=== PATIENT | female | born 1955 | race African-American/Black ===

== ENCOUNTER 2017-10-08 20:46 | Inpatient (IN) ==
[2017-10-08] MEDS ORDERED: ONDANSETRON 4 MG/2 ML VIAL ONE (21:27)
[2017-10-08] MEDS ORDERED: ONDANSETRON 4 MG/2 ML VIAL IV STA (21:28)
[2017-10-08] MEDS ORDERED: MORPHINE 4 MG/1 ML VIAL IV STA ×2 (21:48→22:34)
[2017-10-08] MEDS ORDERED: LACTATED RINGERS 1,000 ML IV ONE (21:48)
[2017-10-08] MEDS ORDERED: ALUM/MAG/SIMETH/LIDO VISC 1:1 30 ML BOTTLE PO STA (21:49)
[2017-10-08 21:58] LABS: Basophils % 0.2 % (0.0-0.8); Eosinophils # 0.1 10*3/uL (0.0-0.87); Eosinophils % 0.5 % (0.00-10.9); Hemoglobin 15.3 GM/DL (12.0-16.0); Immature Granulocytes % 0.5 %; Immature Granulocytes Absolute 0.08 #; Lymphocytes % 11.8 % (21.3-54.2); Mean Corpuscular HGB Conc 31.2 GM/DL (32-36); Mean Corpuscular Hemoglobin 29 PG (27-34); Mean Corpuscular Volume 93.5 FL (87-102); Mean Platelet Volume 10.9 FL (9.6-12.0); Monocytes # 1.7 10*3/uL (0.11-0.8); Monocytes % 9.8 % (1.7-12.7); Neutrophils # 13.2 10*3/uL (1.4-7.4); Neutrophils % 77.2 % (38.7-73.9); Platelet Count 248 T/CUMM (130-400); Red Blood Count 5.24 MC/CUMM (3.8-5.5); Red Cell Distribution Width 13.9 % (9.3-17.3); White Blood Count 17.1 T/CUMM (4-12)
[2017-10-08 22:08] LABS: PT Patient Result 10.8 SECS; Partial Thromboplastin Time 25.7 SECS (0-40)
[2017-10-08 22:26] LABS: Lactic Acid 2.8 MMOL/L (0.4-2.0)
[2017-10-08] MEDS ORDERED: MORPHINE 10 MG/1 ML VIAL ONE (22:34)
[2017-10-08 22:49] LABS: Albumin 3.8 G/DL (3.4-5.0); Bilirubin,Total 0.8 MG/DL (0.2-1.0); Calcium 10.6 MG/DL (8.5-10.1); Osmolality,Calculated 286.3 MOS/KG (273-304); Potassium 3.1 MMOL/L (3.5-5.1); Total Protein 8.2 G/DL (6.4-8.3)
[2017-10-09] MEDS ORDERED: MORPHINE 4 MG/1 ML VIAL IV PRN (01:34)
[2017-10-09 02:25] LABS: Lactic Acid 2.1 MMOL/L (0.4-2.0)
[2017-10-09] MEDS: SODIUM CHLORIDE 0.9% 1,000 ML IV SCH ×3 (02:45→17:27)
[2017-10-09] MEDS: ONDANSETRON 4 MG/2 ML VIAL IV PRN (05:05)
[2017-10-09 06:18] LABS: Basophils % 0.3 % (0.0-0.8); Hematocrit 44.5 VOL% (35.7-47.0); Hemoglobin 14.5 GM/DL (12.0-16.0); Immature Granulocytes % 0.4 %; Immature Granulocytes Absolute 0.05 #; Lymphocytes # 0.6 10*3/uL (1.4-4.0); Lymphocytes % 4.9 % (21.3-54.2); Mean Corpuscular HGB Conc 32.6 GM/DL (32-36); Mean Corpuscular Hemoglobin 29 PG (27-34); Mean Corpuscular Volume 89.9 FL (87-102); Mean Platelet Volume 11.4 FL (9.6-12.0); Monocytes # 0.5 10*3/uL (0.11-0.8); Monocytes % 3.9 % (1.7-12.7); Neutrophils # 11.6 10*3/uL (1.4-7.4); Neutrophils % 90.5 % (38.7-73.9); Platelet Count 223 T/CUMM (130-400); Red Blood Count 4.95 MC/CUMM (3.8-5.5); White Blood Count 12.8 T/CUMM (4-12)
[2017-10-09 06:53] LABS: Albumin 3.6 G/DL (3.4-5.0); Bilirubin,Total 1.3 MG/DL (0.2-1.0); Calcium 10.1 MG/DL (8.5-10.1); Osmolality,Calculated 279.5 MOS/KG (273-304); Potassium 4.3 MMOL/L (3.5-5.1); Total Protein 7.5 G/DL (6.4-8.3)
[2017-10-09 06:56] LABS: Band Neutrophils 1 % (0-10); Hypochromasia 1+; Lymphocytes 4 % (20-55); Microcytosis 1+; Platelet Estimate Normal; Segmented Neutrophils 94 % (50-85); Total Cells Counted 100
[2017-10-09] MEDS ORDERED: DEXTROSE 50% 25 GM/50 ML VIAL IV PRN (07:39)
[2017-10-09] MEDS ORDERED: GLUCAGON 1 MG VIAL IM PRN (07:39)
[2017-10-09] MEDS ORDERED: MEROPENEM 1,000 MG in SYRINGE 1 EACH IV SCH (09:00)
[2017-10-09] MEDS ORDERED: PANTOPRAZOLE 40 MG TABLET PO SCH (09:00)
[2017-10-09] MEDS ORDERED: HYDROmorphone 2 MG/1 ML VIAL IV PRN (09:36)
[2017-10-09] MEDS: PANTOPRAZOLE 40 MG VIAL IV SCH (09:42)
[2017-10-09] MEDS: metroNIDAZOLE INJ 500 MG in PREMIX 1 EACH IV SCH ×3 (09:42→21:19)
[2017-10-09 10:13] LABS: Hepatitis A Ab IgM Quant 0.26 Index; Hepatitis A Ab IgM Result Negative (Negative); Hepatitis B Core IgM Quant 0.12 Index; Hepatitis B Core IgM Result Negative (Negative); Hepatitis B Surface Ag Quant < 0.10 Index; Hepatitis B Surface Ag Result Negative (Negative); Hepatitis C Virus Ab Quant 0.03 Index
[2017-10-09 10:14] LABS: Hepatitis C Virus Ab Result Negative (Negative)
[2017-10-09] MEDS: ENOXAPARIN 40 MG/0.4 ML SYRINGE SUBCUT SCH (10:36)
[2017-10-09] MEDS: LEVOFLOXACIN INJ 750 MG in PREMIX 1 EACH IV SCH (10:54)
[2017-10-09] MEDS: INSULIN REGULAR 100 UNIT/ML SUBCUT SCH ×3 (14:15→21:57)
[2017-10-09] MEDS ORDERED: PROMETHAZINE INJ 12.5 MG in SODIUM CHLORIDE 0.9% 50 ML IV PRN (14:52)
[2017-10-09] MEDS: MEPERIDINE 50 MG/1 ML VIAL IV PRN ×2 (15:43→21:56)
[2017-10-09] MEDS: LACTATED RINGERS 1,000 ML IV SCH ×2 (17:26→21:57)
[2017-10-10] MEDS: MEPERIDINE 50 MG/1 ML VIAL IV PRN ×3 (03:19→18:40)
[2017-10-10] MEDS: metroNIDAZOLE INJ 500 MG in PREMIX 1 EACH IV SCH ×4 (03:20→20:25)
[2017-10-10 05:41] LABS: Basophils % 0.2 % (0.0-0.8); Eosinophils % 0.1 % (0.00-10.9); Hematocrit 43.6 VOL% (35.7-47.0); Hemoglobin 13.6 GM/DL (12.0-16.0); Immature Granulocytes % 0.4 %; Immature Granulocytes Absolute 0.08 #; Lymphocytes % 5.5 % (21.3-54.2); Mean Corpuscular HGB Conc 31.2 GM/DL (32-36); Mean Corpuscular Hemoglobin 29 PG (27-34); Mean Platelet Volume 11.2 FL (9.6-12.0); Neutrophils # 15.2 10*3/uL (1.4-7.4); Neutrophils % 82.8 % (38.7-73.9); Platelet Count 211 T/CUMM (130-400); Red Blood Count 4.74 MC/CUMM (3.8-5.5); Red Cell Distribution Width 14.1 % (9.3-17.3); White Blood Count 18.4 T/CUMM (4-12)
[2017-10-10 06:13] LABS: Albumin 2.9 G/DL (3.4-5.0); Bilirubin,Total 1.6 MG/DL (0.2-1.0); Calcium 9.3 MG/DL (8.5-10.1); Osmolality,Calculated 271.7 MOS/KG (273-304); Total Protein 6.4 G/DL (6.4-8.3)
[2017-10-10] MEDS: LACTATED RINGERS 1,000 ML IV SCH ×6 (08:04→23:45)
[2017-10-10] MEDS: INSULIN REGULAR 100 UNIT/ML SUBCUT SCH ×4 (08:12→22:57)
[2017-10-10 09:09] LABS: Free T4 (Free Thyroxine) 0.97 NG/DL (0.76-1.46); Thyroid Stimulating Hormone 0.463 uIU/ml (0.358-3.74)
[2017-10-10] MEDS: PANTOPRAZOLE 40 MG VIAL IV SCH (09:28)
[2017-10-10] MEDS: ENOXAPARIN 40 MG/0.4 ML SYRINGE SUBCUT SCH (09:31)
[2017-10-10] MEDS: LEVOFLOXACIN INJ 750 MG in PREMIX 1 EACH IV SCH (11:35)
[2017-10-10] MEDS: LEVOTHYROXINE 112 MCG TABLET PO SCH (13:19)
[2017-10-10] MEDS: FAMOTIDINE 20 MG TABLET PO SCH (13:25)
[2017-10-11] MEDS: MEPERIDINE 50 MG/1 ML VIAL IV PRN ×3 (01:57→20:38)
[2017-10-11] MEDS: metroNIDAZOLE INJ 500 MG in PREMIX 1 EACH IV SCH ×4 (01:58→20:36)
[2017-10-11] MEDS: LACTATED RINGERS 1,000 ML IV SCH ×3 (05:37→16:38)
[2017-10-11] MEDS: LEVOTHYROXINE 112 MCG TABLET PO SCH (07:02)
[2017-10-11 07:07] LABS: Basophils # 0.1 10*3/uL (0.0-0.2); Basophils % 0.3 % (0.0-0.8); Eosinophils # 0.1 10*3/uL (0.0-0.87); Eosinophils % 0.4 % (0.00-10.9); Hematocrit 41.9 VOL% (35.7-47.0); Hemoglobin 13.2 GM/DL (12.0-16.0); Immature Granulocytes % 0.6 %; Immature Granulocytes Absolute 0.09 #; Lymphocytes # 1.4 10*3/uL (1.4-4.0); Lymphocytes % 8.7 % (21.3-54.2); Mean Corpuscular HGB Conc 31.5 GM/DL (32-36); Mean Corpuscular Hemoglobin 29 PG (27-34); Mean Corpuscular Volume 91.9 FL (87-102); Mean Platelet Volume 11.5 FL (9.6-12.0); Monocytes # 2.2 10*3/uL (0.11-0.8); Monocytes % 13.9 % (1.7-12.7); Neutrophils # 12.2 10*3/uL (1.4-7.4); Neutrophils % 76.1 % (38.7-73.9); Platelet Count 154 T/CUMM (130-400); Red Blood Count 4.56 MC/CUMM (3.8-5.5); Red Cell Distribution Width 14.1 % (9.3-17.3)
[2017-10-11 07:34] LABS: Albumin 2.4 G/DL (3.4-5.0); Bilirubin,Total 2.2 MG/DL (0.2-1.0); Calcium 9.2 MG/DL (8.5-10.1); Osmolality,Calculated 269.8 MOS/KG (273-304); Potassium 3.7 MMOL/L (3.5-5.1); Total Protein 5.9 G/DL (6.4-8.3)
[2017-10-11] MEDS: INSULIN REGULAR 100 UNIT/ML SUBCUT SCH ×4 (08:54→21:27)
[2017-10-11] MEDS: PANTOPRAZOLE 40 MG VIAL IV SCH (08:56)
[2017-10-11] MEDS: FAMOTIDINE 20 MG TABLET PO SCH (08:56)
[2017-10-11] MEDS: ENOXAPARIN 40 MG/0.4 ML SYRINGE SUBCUT SCH (08:57)
[2017-10-11] MEDS: LEVOFLOXACIN INJ 750 MG in PREMIX 1 EACH IV SCH (10:41)
[2017-10-11] MEDS ORDERED: MAGNESIUM SULF RIDER 2 GM in PREMIX 1 EACH IV PRN (12:15)
[2017-10-11] MEDS ORDERED: MAGNESIUM SULF RIDER 4 GM in PREMIX 1 EACH IV PRN (12:15)
[2017-10-11] MEDS: CHOLECALCIFEROL 5,000 UNIT TABLET PO SCH (13:12)
[2017-10-11] MEDS: ONDANSETRON 4 MG/2 ML VIAL IV PRN (20:37)
[2017-10-12] MEDS: metroNIDAZOLE INJ 500 MG in PREMIX 1 EACH IV SCH ×4 (01:37→19:36)
[2017-10-12] MEDS: LACTATED RINGERS 1,000 ML IV SCH ×5 (05:17→20:00)
[2017-10-12 06:11] LABS: Basophils # 0.1 10*3/uL (0.0-0.2); Basophils % 0.4 % (0.0-0.8); Eosinophils # 0.2 10*3/uL (0.0-0.87); Eosinophils % 1.9 % (0.00-10.9); Hematocrit 37.4 VOL% (35.7-47.0); Hemoglobin 12.3 GM/DL (12.0-16.0); Immature Granulocytes % 0.6 %; Immature Granulocytes Absolute 0.08 #; Lymphocytes # 1.3 10*3/uL (1.4-4.0); Lymphocytes % 10.5 % (21.3-54.2); Mean Corpuscular HGB Conc 32.9 GM/DL (32-36); Mean Corpuscular Hemoglobin 30 PG (27-34); Mean Corpuscular Volume 89.9 FL (87-102); Mean Platelet Volume 11.1 FL (9.6-12.0); Monocytes # 1.6 10*3/uL (0.11-0.8); Monocytes % 12.7 % (1.7-12.7); Neutrophils # 9.3 10*3/uL (1.4-7.4); Neutrophils % 73.9 % (38.7-73.9); Platelet Count 189 T/CUMM (130-400); Red Blood Count 4.16 MC/CUMM (3.8-5.5); White Blood Count 12.6 T/CUMM (4-12)
[2017-10-12] MEDS: LEVOTHYROXINE 112 MCG TABLET PO SCH (06:21)
[2017-10-12 06:37] LABS: Calcium 8.7 MG/DL (8.5-10.1); Osmolality,Calculated 271.7 MOS/KG (273-304); Potassium 3.6 MMOL/L (3.5-5.1)
[2017-10-12 06:43] LABS: Albumin 2.3 G/DL (3.4-5.0); Bilirubin,Direct 0.31 MG/DL (0.0-0.20); Bilirubin,Indirect 1.4 MG/DL (0.0-1.0); Bilirubin,Total 1.7 MG/DL (0.2-1.0); Total Protein 5.9 G/DL (6.4-8.3)
[2017-10-12] MEDS: ENOXAPARIN 40 MG/0.4 ML SYRINGE SUBCUT SCH (09:54)
[2017-10-12] MEDS: FAMOTIDINE 20 MG TABLET PO SCH (09:55)
[2017-10-12] MEDS: PANTOPRAZOLE 40 MG VIAL IV SCH (09:55)
[2017-10-12] MEDS: INSULIN REGULAR 100 UNIT/ML SUBCUT SCH ×3 (10:05→16:43)
[2017-10-12] MEDS: LEVOFLOXACIN INJ 750 MG in PREMIX 1 EACH IV SCH (11:54)
[2017-10-12] MEDS: MEPERIDINE 50 MG/1 ML VIAL IV PRN ×2 (13:35→21:25)
[2017-10-12] MEDS ORDERED: ACETAMINOPHEN 325 MG TABLET PO PRN (14:21)
[2017-10-13] MEDS: INSULIN REGULAR 100 UNIT/ML SUBCUT SCH ×5 (01:38→21:58)
[2017-10-13] MEDS: LACTATED RINGERS 1,000 ML IV SCH ×5 (01:39→15:30)
[2017-10-13] MEDS: metroNIDAZOLE INJ 500 MG in PREMIX 1 EACH IV SCH ×2 (02:59→10:15)
[2017-10-13] MEDS: LEVOTHYROXINE 112 MCG TABLET PO SCH (06:11)
[2017-10-13 06:34] LABS: Basophils # 0.1 10*3/uL (0.0-0.2); Basophils % 0.5 % (0.0-0.8); Eosinophils # 0.3 10*3/uL (0.0-0.87); Eosinophils % 3.1 % (0.00-10.9); Hematocrit 37.3 VOL% (35.7-47.0); Hemoglobin 11.9 GM/DL (12.0-16.0); Immature Granulocytes % 0.9 %; Immature Granulocytes Absolute 0.09 #; Lymphocytes # 1.4 10*3/uL (1.4-4.0); Lymphocytes % 14.1 % (21.3-54.2); Mean Corpuscular HGB Conc 31.9 GM/DL (32-36); Mean Corpuscular Hemoglobin 30 PG (27-34); Mean Corpuscular Volume 92.8 FL (87-102); Mean Platelet Volume 10.9 FL (9.6-12.0); Monocytes # 1.3 10*3/uL (0.11-0.8); Monocytes % 13.1 % (1.7-12.7); Neutrophils % 68.3 % (38.7-73.9); Platelet Count 205 T/CUMM (130-400); Red Blood Count 4.02 MC/CUMM (3.8-5.5); White Blood Count 10.2 T/CUMM (4-12)
[2017-10-13 06:56] LABS: Albumin 2.3 G/DL (3.4-5.0); Bilirubin,Direct 0.19 MG/DL (0.0-0.20); Bilirubin,Indirect 0.6 MG/DL (0.0-1.0); Bilirubin,Total 0.8 MG/DL (0.2-1.0); Osmolality,Calculated 274.4 MOS/KG (273-304); Potassium 3.5 MMOL/L (3.5-5.1); Total Protein 5.8 G/DL (6.4-8.3)
[2017-10-13] MEDS: FAMOTIDINE 20 MG TABLET PO SCH (10:05)
[2017-10-13] MEDS: ENOXAPARIN 40 MG/0.4 ML SYRINGE SUBCUT SCH (10:06)
[2017-10-13] MEDS: PANTOPRAZOLE 40 MG VIAL IV SCH (10:07)
[2017-10-13] MEDS: metroNIDAZOLE 500 MG TABLET PO SCH ×2 (15:14→21:54)
[2017-10-13] MEDS: LEVOFLOXACIN 750 MG TABLET PO SCH (15:14)
[2017-10-13] MEDS: LEVOFLOXACIN INJ 750 MG in PREMIX 1 EACH IV SCH (19:44)
[2017-10-14] MEDS: LEVOTHYROXINE 112 MCG TABLET PO SCH (08:14)
[2017-10-14] MEDS: PANTOPRAZOLE 40 MG VIAL IV SCH (09:48)
[2017-10-14] MEDS: metroNIDAZOLE 500 MG TABLET PO SCH (09:48)
[2017-10-14] MEDS: FAMOTIDINE 20 MG TABLET PO SCH (09:48)
[2017-10-14] MEDS: LEVOFLOXACIN 750 MG TABLET PO SCH (09:48)
[2017-10-14] MEDS: ENOXAPARIN 40 MG/0.4 ML SYRINGE SUBCUT SCH (09:56)
[2017-10-14] MEDS: INSULIN REGULAR 100 UNIT/ML SUBCUT SCH ×4 (10:52→23:37)
[2017-10-14] MEDS: CHOLECALCIFEROL 5,000 UNIT TABLET PO SCH (23:37)
[2017-10-15] MEDS: LEVOTHYROXINE 112 MCG TABLET PO SCH (06:19)
[2017-10-15] MEDS: PANTOPRAZOLE 40 MG VIAL IV SCH (08:33)
[2017-10-15] MEDS: FAMOTIDINE 20 MG TABLET PO SCH (08:34)
[2017-10-15] MEDS: INSULIN REGULAR 100 UNIT/ML SUBCUT SCH (08:34)
[2017-10-15] MEDS: ENOXAPARIN 40 MG/0.4 ML SYRINGE SUBCUT SCH (08:38)
[2017-10-15 09:04] VITALS: BP 112/67
== END 2017-10-15 12:30 | disposition home or self-care (01) | DRG 439 ==
LOC: N.ED 20:46 → SUATTDRO 10-09 01:34 → N.EDINP 10-09 01:34 → N.5E 10-09 02:24
PROVIDERS: ADMIT Internal Medicine Infectious Disease; ATTEND Internal Medicine